=== PATIENT | female | born 1955 | race Caucasian/White ===

== ENCOUNTER 2019-11-10 07:24 | Outpatient (CLI) | payer BC ==
[2019-11-10] VITALS (17 sets, daily range): BP systolic 105–160; BP diastolic 66–93
[~2019-11-10 07:24] MED LIST: CYCL1DRO6 EACHEYE; SERT25TA PO
== END 2019-11-10 23:59 | disposition home or self-care (01) ==
LOC: CARD DIAG 07:24
PROVIDERS: ATTEND Internal Medicine Interventional Cardiology
DX: R55 Syncope and collapse (principal)
CPT/HCPCS: 93660